=== PATIENT | female | born 1935 ===

== ENCOUNTER 2020-09-27 10:30 | Outpatient (REF) | payer MEDICARE, SELFPAY ==
[2020-09-27 11:58] LABS: Alanine Aminotransferase 17 U/L (0-31); Albumin Level 4.4 g/dL (3.5-5.0); Alkaline Phosphatase 47 U/L (39-117); Aspartate Amino Transferase 20 U/L (5-31); Bilirubin Direct 0.2 mg/dL (0.0-0.5); Bilirubin Total 0.4 mg/dL (0.0-1.0); Cholesterol 211 mg/dL; HDL Cholesterol 50 mg/dL; LDL Cholesterol Calculated 113 mg/dl; Total Protein 7.2 g/dL (6.5-8.0); Triglycerides 242 mg/dL
[2020-09-27 12:07] LABS: Reflex LDLD? No
== END 2020-09-27 10:31 | disposition home or self-care (01) ==
LOC: HO.LNP 10:30
PROVIDERS: Visit Provider Internal Medicine
DX: E78.00 Pure hypercholesterolemia, unspecified (principal)
CPT/HCPCS: 80061; 80076

== ENCOUNTER 2020-12-27 16:09 | Outpatient (REF) | payer MEDICARE, SELFPAY ==
[2020-12-27 16:28] LABS: MANUAL DIFF FLAG SCAN; PLT CLUMP 1; SCAN SMEAR FLAG 1
[2020-12-27 16:30] LABS: Basophils Percent Auto 0.1 % (0-2); Eosinophils Absolute Auto 0.1 X10*3/uL (0.0-0.4); Eosinophils Percent Auto 0.9 % (0-4); Hematocrit 38.4 % (37-47); Hemoglobin 12.8 g/dl (12.0-16.0); Imm Gran Abs Auto 0.02 X10*3/uL (0.00-0.03); Imm Gran Pct Auto 0.2 % (0.0-0.4); Mean Corpuscular HGB Conc 33.3 g/dl (31.0-35.0); Mean Corpuscular Hemoglobin 30.5 pg (27.0-33.0); Mean Corpuscular Volume 91.6 fL (80-98); Monocytes Absolute Auto 0.7 X10*3/uL (0.1-1.2); Monocytes Percent Auto 8.3 % (2-11); Neutrophils Absolute Auto 7.1 X10*3/uL (2.0-8.3); Neutrophils Percent Auto 79.5 % (45-73); Red Blood Count 4.19 X10*6/uL (4.20-5.50); Red Cell Distribution Width 13.5 % (11.0-16.0); White Blood Count 8.9 X10*3/uL (4.8-10.8)
[2020-12-27 16:56] LABS: Alanine Aminotransferase 75 U/L (0-31); Albumin Level 4.1 g/dL (3.5-5.0); Alkaline Phosphatase 63 U/L (39-117); Anion Gap 16 (12-20); Aspartate Amino Transferase 53 U/L (5-31); Bilirubin Total 0.3 mg/dL (0.0-1.0); Blood Urea Nitrogen 18 mg/dL (9-16); Carbon Dioxide 23 mmol/L (22-29); Chloride 107 mmol/L (96-108); Estimated Glomerular Filt Rate > 60; Glucose Random 133 mg/dL (60-115); Sodium 142 mmol/L (135-145); Total Protein 7.1 g/dL (6.5-8.0)
[2020-12-27 17:29] LABS: Folate 10.9 ng/mL (> or = 4.0); Vitamin B12 234 pg/mL (200-900)
[2020-12-27 17:32] LABS: Erythrocyte Sedimentation Rate 49 MM/HR (0-20)
[2020-12-27 17:44] LABS: SLIDE REVIEW VERIFIED
== END 2020-12-27 16:10 | disposition home or self-care (01) ==
LOC: HO.LNP 16:09
PROVIDERS: Visit Provider Internal Medicine
DX: Z00.00 Encounter for general adult medical examination without abnormal findings (principal); M79.7 Fibromyalgia
CPT/HCPCS: 80053; 82550; 82607; 82746; 85025; 85652; 86140